=== PATIENT | female | born 1985 | race Caucasian/White ===

== ENCOUNTER 2021-04-06 07:30 | Inpatient (IN) | payer BC ==
[2021-04-18] MEDS ORDERED: Promethazine HCl 25 MG/ML VIAL IM PRN ×2 (09:07→14:14)
[2021-04-18] MEDS ORDERED: hydrALAZINE 20 MG/ML VIAL SLOW IVP PRN ×2 (09:07→14:41)
[2021-04-18] MEDS ORDERED: Ondansetron PF 4 MG/2 ML Vial IVP PRN ×3 (09:07→14:41)
[2021-04-18] MEDS ORDERED: Famotidine/PF 20 mg/2ml Vial SLOW IVP PRN (09:07)
[2021-04-18] MEDS ORDERED: CEFAZOLIN 2 GM in Premix Bag 1 BAG IVPB SCH (09:07)
[2021-04-18] MEDS ORDERED: Bicitra 30 ML UDCUP PO PRN (09:07)
[2021-04-18] MEDS: Lactated Ringer's 1,000 ML IV SCH ×4 (10:00→23:49)
[2021-04-18] MEDS ORDERED: Butorphanol Tartrate 1 MG/ML VIAL ONE (10:09)
[2021-04-18] MEDS: Butorphanol Tartrate 1 MG/ML VIAL SLOW IVP PRN ×2 (10:15→11:35)
[2021-04-18 10:43] LABS: Mean Corpuscular HGB CONC 33.2 g/dL (32.0-36.0); Mean Corpuscular Hemoglobin 30.8 pg (27.0-33.0); Mean Corpuscular Volume 92.8 fl (81.6-98.3); Mean Platelet Volume 12.8 fl (7.4-10.4); Platelet Count 169 10x3/uL (150-450); RBC Distribution Width 13.7 % (11.5-14.5); Red Blood Cell (RBC) Count 3.89 10x6/uL (3.90-5.03)
[2021-04-18 11:05] VITALS: BMI 27.9
[2021-04-18 11:05] LABS: HIV (1/2) Antibody/Antigen Non-Reactive (NonReactive); HIV 1/2 INDEX 0.07 S/CO (<1.00); Hep B Surf Ag Non-Reactive S/CO (NonReactive); Syphilis Antibody Nonreactive (Nonreactive); Syphilis Antibody Index 0.07 S/CO (<1.00 Non-Reactive)
[2021-04-18 11:08] LABS: HBSAg Index 0.19 S/CO (0-0.99)
[2021-04-18] MEDS ORDERED: Ondansetron PF 4 MG/2 ML Vial ONE ×2 (11:29→13:23)
[2021-04-18] MEDS ORDERED: Phenylephrine 40 MG/NS 250 ML 250 ML ONE (11:29)
[2021-04-18] MEDS ORDERED: Morphine PF 10 MG/10 ML VIAL ONE (11:29)
[2021-04-18] MEDS ORDERED: Oxytocin 10 UNITS/ML VIAL ONE ×3 (11:29→13:37)
[2021-04-18] MEDS ORDERED: Fentanyl 100 MCG/2 ML VIAL ONE (11:29)
[2021-04-18] MEDS ORDERED: PHENYLEPHRINE-NS 100 MCG/ML 10 ML SYRINGE ONE (11:29)
[2021-04-18] MEDS ORDERED: Bupivacaine 0.75% W/DEXTROSE 8.25% 2 ML AMP ONE (11:29)
[2021-04-18] MEDS ORDERED: ePHEDrine Sulfate 50 MG/10 ML VIAL ONE (11:29)
[2021-04-18] MEDS ORDERED: Lidocaine 2% MPF 10 ML AMP (For Epidural Use) ONE (11:33)
[2021-04-18] MEDS ORDERED: Ketorolac Tromethamine 30 MG/ML VIAL ONE (11:33)
[2021-04-18] MEDS ORDERED: Dexamethasone 4 mg/ml Vial ONE (13:23)
[2021-04-18] MEDS ORDERED: Naloxone HCl 0.4 mg/ml Vial IVP PRN ×2 (14:14)
[2021-04-18] MEDS ORDERED: Promethazine HCl 25 MG SUPP PR PRN (14:14)
[2021-04-18] MEDS ORDERED: Naloxone HCl 0.4 mg/ml Vial IV PRN (14:14)
[2021-04-18] MEDS ORDERED: Hydrocerin (Eucerin) Cream 120 gm Jar TOP PRN (14:14)
[2021-04-18] MEDS ORDERED: diphenhydrAMINE 50 MG/ML VIAL IVP PRN (14:14)
[2021-04-18] MEDS ORDERED: Communication Order-Pharmacy FS SCH (14:15)
[2021-04-18] MEDS ORDERED: diphenhydrAMINE 25 MG CAP PO PRN (14:41)
[2021-04-18] MEDS ORDERED: Misoprostol 200 MCG TAB PR PRN (14:41)
[2021-04-18] MEDS ORDERED: Bisacodyl 10 MG SUPP PR PRN (14:41)
[2021-04-18] MEDS ORDERED: Acetaminophen 325 MG TAB PO PRN (14:41)
[2021-04-18] MEDS ORDERED: Lanolin Ointment 7 GM TUBE TOP PRN (14:41)
[2021-04-18] MEDS ORDERED: NS w/ Oxytocin 30 units 500 ML IV SCH (14:45)
[2021-04-18] MEDS: Ketorolac Tromethamine 30 MG/ML VIAL IVP PRN ×2 (17:39→23:46)
[2021-04-18] MEDS: Ferrous Sulfate 325 MG TAB PO SCH (20:32)
[2021-04-18] MEDS: Docusate Calcium (SURFAK) 240 MG CAP PO SCH (20:32)
[2021-04-19] MEDS ORDERED: HYDROcodone/Acetaminophen 5/325 mg Tablet PO PRN (02:15)
[2021-04-19] MEDS ORDERED: Zolpidem Tartrate 5 MG TAB PO PRN (02:15)
[2021-04-19 04:10] LABS: Hemoglobin 9.2 g/dL (12.0-15.5); Mean Corpuscular HGB CONC 33.7 g/dL (32.0-36.0); Mean Corpuscular Volume 91.9 fl (81.6-98.3); Mean Platelet Volume 12.8 fl (7.4-10.4); Platelet Count 163 10x3/uL (150-450); RBC Distribution Width 13.7 % (11.5-14.5); Red Blood Cell (RBC) Count 2.97 10x6/uL (3.90-5.03); White Blood Cell (WBC) Count 14.3 10x3/uL (3.5-10.5)
[2021-04-19] MEDS: Ketorolac Tromethamine 30 MG/ML VIAL IVP PRN (05:56)
[2021-04-19] MEDS: Lactated Ringer's 1,000 ML IV SCH ×2 (06:49→14:07)
[2021-04-19] MEDS: Simethicone Chewable 80 MG TAB PO PRN ×2 (08:29→15:50)
[2021-04-19] MEDS: Ferrous Sulfate 325 MG TAB PO SCH ×2 (08:29→21:51)
[2021-04-19] MEDS: Prenatal Vitamin 1 TAB PO SCH (08:29)
[2021-04-19] MEDS: Docusate Calcium (SURFAK) 240 MG CAP PO SCH ×2 (08:29→21:51)
[2021-04-19] MEDS: HYDROcodone/Acetaminophen 5/325 mg Tablet PO PRN ×4 (08:30→21:51)
[2021-04-19] MEDS: Ibuprofen 800 MG TAB PO SCH ×2 (14:27→21:52)
[2021-04-19] MEDS ORDERED: Boostrix 0.5 ML (Tdap) VIAL IM ONE (14:41)
[2021-04-20] MEDS: HYDROcodone/Acetaminophen 5/325 mg Tablet PO PRN (02:03)
[2021-04-20] MEDS: Lactated Ringer's 1,000 ML IV SCH ×2 (02:56→06:05)
[2021-04-20] MEDS: Ibuprofen 800 MG TAB PO SCH (05:33)
[2021-04-20 08:04] VITALS: BP 127/71; TEMP 98.8
[2021-04-20] MEDS: Ferrous Sulfate 325 MG TAB PO SCH (09:06)
[2021-04-20] MEDS: Docusate Calcium (SURFAK) 240 MG CAP PO SCH (09:06)
[2021-04-20] MEDS: Prenatal Vitamin 1 TAB PO SCH (09:06)
== END 2021-04-20 10:00 | disposition home or self-care (01) | DRG 788 ==
LOC: CSHLD 04-18 10:10 → CSHPP 04-18 17:10
PROVIDERS: ADMIT Obstetrics & Gynecology; ATTEND Obstetrics & Gynecology
PROC: 10D00Z1 Extraction of Products of Conception, Low, Open Approach (ICD-10-PCS; principal; 2021-04-18)
DX: O34.211 Maternal care for low transverse scar from previous cesarean delivery (principal); Z3A.38 38 weeks gestation of pregnancy; Z37.0 Single live birth; Z20.822 Contact with and (suspected) exposure to COVID-19
CPT/HCPCS: 36415; 51702; 85027; 86780; 86850; 86900; 86901; 87340; 87389; J0595; J0690; J1100; J1200; J1885; J2274; J2405; J2550; J2590; J3010; J3490; J7120; U0003; U0005

== ENCOUNTER 2021-04-15 07:48 | Outpatient (CLI) | payer OTHER ==
[2021-04-15 21:42] LABS: SARS-CoV-2 PCR by NAA Not Detected (NotDetected)
== END 2021-04-15 07:49 | disposition home or self-care (01) ==
LOC: CSHLAB 07:48
PROVIDERS: ATTEND Obstetrics & Gynecology
DX: Z20.822 Contact with and (suspected) exposure to COVID-19 (principal)
CPT/HCPCS: U0003; U0005